=== PATIENT | female | born 1990 | race Caucasian/White ===

== ENCOUNTER 2018-12-11 11:18 | Emergency (ER) | payer OTHER ==
[~2018-12-11] VITALS: Ht 160 cm; Wt 75.1 kg
[2018-12-11] MEDS ORDERED: ESCI20TA (11:24)
[2018-12-11 11:49] LABS: BASO # 0.1 10^3/uL (0.0-0.2); BASO % 0.5 % (0.0-1.0); EOS # 0.2 10^3/uL (0.0-0.5); EOS % 1.6 % (0.0-3.0); HEMATOCRIT 41.3 % (36.0-47.0); HEMOGLOBIN 13.8 g/dl (12.0-15.5); LYMPH # 2.3 10^3/uL (1.5-5.0); LYMPH % 24.7 % (24.0-44.0); MEAN CORPUSCULAR HEMOGLOBIN 30.8 pg (27.0-33.0); MEAN CORPUSCULAR HGB CONC 33.4 g/dl (32.0-36.5); MEAN CORPUSCULAR VOLUME 92.2 fl (80.0-96.0); MONO # 0.8 10^3/uL (0.0-0.8); MONO % 8.7 % (0.0-5.0); NEUTROPHILS # 5.8 10^3/uL (1.5-8.5); NEUTROPHILS % 64.2 % (36.0-66.0); PLATELET COUNT, AUTOMATED 398 10^3/uL (150-450); RED BLOOD COUNT 4.48 10^6/uL (4.00-5.40); WHITE BLOOD COUNT 9.1 10^3/uL (4.0-10.0)
[2018-12-11 12:10] LABS: HCG, SERUM QUALITATIVE POSITIVE (NEGATIVE)
[2018-12-11 14:00] LABS: HCG, SERUM QUANTITATIVE 42 MIU/ML
[2018-12-11 14:31] VITALS: BP 128/83
--- NOTE | 2018-12-12 07:22 | REP ---
FIRST TRIMESTER ULTRASOUND: Real-time ultrasound evaluation of pelvis performed utilizing transabdominal and endovaginal technique. The uterus measures 6.9 x 3.5 x 4.4 cm. Endometrial thickness is 6 mm. There is no gestational sac seen in the endometrial canal. The right ovary measures 2.1 x 1.0 x 1.3 cm and left ovary 2.8 x 1.8 x 1.8 cm. A complex cystic structure in the left ovary measures 1.5 cm in greatest diameter which may represent a complex corpus luteum. There is no ovarian torsion, RI right ovary 0.58 and left ovary 0.47. No significant free fluid is seen in the pelvis. Differential diagnosis would include very early intrauterine gestation, missed AB, or ectopic . Suggest correlation with serial quantitative beta hCG values, and followup ultrasound as necessary. Electronically Signed by Pierre Hancock MD 12/13/2018 10:07 A
== END 2018-12-11 14:32 | disposition home or self-care (01) ==
LOC: M ED 11:18
DX: O20.8 Other hemorrhage in early pregnancy (principal); O99.341 Other mental disorders complicating pregnancy, first trimester; Z3A.01 Less than 8 weeks gestation of pregnancy; Z79.899 Other long term (current) drug therapy

== ENCOUNTER → 2018-12-13 | Outpatient (CLI) | payer OTHER ==
[~2018-12-13] MED LIST: ESCI20TA
== END ==
LOC: M LAB 11:01
PROVIDERS: ATTEND Physician Assistant
DX: O20.8 Other hemorrhage in early pregnancy (principal)

== ENCOUNTER → 2018-12-20 | Outpatient (CLI) | payer OTHER ==
[2018-12-20 13:48] LABS: ALBUMIN 3.8 GM/DL (3.2-5.2); ALT/SGPT 18 U/L (12-78); BILIRUBIN,TOTAL 0.3 MG/DL (0.2-1.0); BLOOD UREA NITROGEN 12 MG/DL (7-18); CALCIUM LEVEL 9.3 MG/DL (8.5-10.1); CARBON DIOXIDE LEVEL 29 MEQ/L (21-32); CHLORIDE LEVEL 105 MEQ/L (98-107); CREATININE FOR GFR 0.67 MG/DL (0.55-1.30); FOLLICLE STIMULATING HORMONE 5.3 mIU/mL; GLOMERULAR FILTRATION RATE > 60.0 (>60); GLUCOSE, FASTING 85 MG/DL (70-100); POTASSIUM SERUM 4.6 MEQ/L (3.5-5.1); SODIUM LEVEL 140 MEQ/L (136-145); TOTAL PROTEIN 7.2 GM/DL (6.4-8.2)
[2018-12-25 14:39] LABS: ANTI DS-DNA AB <1:10 titer (.); CARDIOLIPIN IGA ANTIBODY <9 APL U/mL (0-11); CARDIOLIPIN IGG ANTIBODY <9 GPL U/mL (0-14); CARDIOLIPIN IGM ANTIBODY <9 MPL U/mL (0-12); SSA SJOGRENS A <0.2 AI (0.0-0.9); SSB SJOGRENS B <0.2 AI (0.0-0.9)
[2018-12-26 10:14] LABS: DRVV SCREEN 42.9 SEC
== END ==
LOC: M SMT 10:23
PROVIDERS: ATTEND Obstetrics & Gynecology
DX: N96 Recurrent pregnancy loss (principal)

== ENCOUNTER → 2019-01-08 | Outpatient (CLI) | payer OTHER | LOC: M WUC 17:00 | PROVIDERS: ATTEND Obstetrics & Gynecology | DX: N96 Recurrent pregnancy loss (principal) ==

== ENCOUNTER → 2019-01-10 | Outpatient (CLI) | payer OTHER | LOC: M WUC 16:55 | PROVIDERS: ATTEND Obstetrics & Gynecology | DX: N96 Recurrent pregnancy loss (principal) ==

== ENCOUNTER → 2019-03-05 | Outpatient (CLI) | payer OTHER ==
[2019-03-05 18:16] LABS: BASO % 0.4 % (0.0-1.0); EOS # 0.2 10^3/uL (0.0-0.5); HEMATOCRIT 37.5 % (36.0-47.0); HEMOGLOBIN 12.1 g/dl (12.0-15.5); LYMPH % 20.3 % (24.0-44.0); MEAN CORPUSCULAR HEMOGLOBIN 29.9 pg (27.0-33.0); MEAN CORPUSCULAR HGB CONC 32.3 g/dl (32.0-36.5); MEAN CORPUSCULAR VOLUME 92.6 fl (80.0-96.0); MONO # 0.9 10^3/uL (0.0-0.8); MONO % 8.6 % (0.0-5.0); NEUTROPHILS # 6.7 10^3/uL (1.5-8.5); NEUTROPHILS % 68.2 % (36.0-66.0); PLATELET COUNT, AUTOMATED 408 10^3/uL (150-450); RED BLOOD COUNT 4.05 10^6/uL (4.00-5.40); WHITE BLOOD COUNT 9.9 10^3/uL (4.0-10.0)
[2019-03-05 20:46] LABS: CHLAMYDIA DNA AMPLIFICATION NEGATIVE (NEGATIVE); GC DNA AMPLIFICATION NEGATIVE (NEGATIVE)
[2019-03-07 10:34] LABS: HEPATITIS B SURFACE ANTIGEN NEGATIVE (NEGATIVE); HEPATITIS C VIRUS ABY INDEX 0.1 INDEX (<0.8); HIV 1&2 SCREEN CENTAUR NEGATIVE (NEGATIVE); RUBELLA IgG QUALITATIVE IMMUNE (IMMUNE)
== END ==
LOC: M WUC 15:08
PROVIDERS: ATTEND Obstetrics & Gynecology
DX: Z34.80 Encounter for supervision of other normal pregnancy, unspecified trimester (principal); Z36.89 Encounter for other specified antenatal screening

== ENCOUNTER → 2019-04-18 | Outpatient (CLI) | payer OTHER | LOC: M PLALAB 11:16 | PROVIDERS: ATTEND Advanced Practice Midwife | DX: Z36.89 Encounter for other specified antenatal screening (principal) ==

== ENCOUNTER → 2019-05-07 | Outpatient (CLI) | payer OTHER ==
--- NOTE | 2019-05-08 04:19 | REP ---
Clinical: Anatomical evaluation. Comparison: None . Findings: Examination demonstrates a single live intrauterine in cephalic presentation. motion is identified by technologist. Placenta is noted posterior and grade I without evidence for placenta previa or abruption. Amniotic fluid volume is normal. Cervix measures the 3.3 cm in length and appears closed. No evidence for nuchal cord. Gestational age by current measurements 20 weeks 4 days with KAMRYN 09/20/2019 . FHR equals 135 beats per minute. BPD 4.5 cm 19 weeks 4 days HC 18.3 cm 20 weeks 5 days AC 16.9 cm 21 weeks 6 days FL 3.4 cm 20 weeks 5 days HL 3.4 cm 21 weeks 4 days HC/AC ratio 1.08 Estimated weight 409 grams ( 70th percentile). Anatomical assessment demonstrates normal structures including cranium, choroid plexus, cavum, cerebellum/posterior fossa, facial features, lungs, diaphragm, stomach, cord insertion/three-vessel cord, kidneys/bladder, spine, and extremities. Impression: 1. Single live intrauterine demonstrating appropriate weight for age measurements. 2. Limited evaluation of the heart/ventricular outflow tracts. Remainder of the anatomical assessment is complete and normal.
== END ==
LOC: M WHC 09:57
PROVIDERS: ATTEND Obstetrics & Gynecology
DX: Z34.92 Encounter for supervision of normal pregnancy, unspecified, second trimester (principal); Z36.89 Encounter for other specified antenatal screening; Z3A.20 20 weeks gestation of pregnancy

== ENCOUNTER → 2019-06-15 | Outpatient (REF) | payer OTHER ==
[2019-06-15 13:22] LABS: HEMOGLOBIN 11.3 g/dl (12.0-15.5); MEAN CORPUSCULAR HEMOGLOBIN 29.9 pg (27.0-33.0); MEAN CORPUSCULAR HGB CONC 32.3 g/dl (32.0-36.5); MEAN CORPUSCULAR VOLUME 92.6 fl (80.0-96.0); PLATELET COUNT, AUTOMATED 397 10^3/uL (150-450); RED BLOOD COUNT 3.78 10^6/uL (4.00-5.40); WHITE BLOOD COUNT 13.8 10^3/uL (4.0-10.0)
== END ==
LOC: M PLALAB 10:14
PROVIDERS: ATTEND Advanced Practice Midwife
DX: O26.22 Pregnancy care for patient with recurrent pregnancy loss, second trimester (principal); Z36.89 Encounter for other specified antenatal screening; Z3A.22 22 weeks gestation of pregnancy

== ENCOUNTER → 2019-08-24 | Outpatient (REF) | payer OTHER | LOC: M PLALAB 10:23 | PROVIDERS: ATTEND Advanced Practice Midwife | DX: O26.23 Pregnancy care for patient with recurrent pregnancy loss, third trimester (principal) | CPT/HCPCS: 36415; 87389; G0463 ==

== ENCOUNTER → 2019-08-29 | Outpatient (REF) | payer OTHER ==
[2019-08-29 13:52] LABS: HEMATOCRIT 36.5 % (36.0-47.0); HEMOGLOBIN 11.6 g/dl (12.0-15.5); MEAN CORPUSCULAR HEMOGLOBIN 28.4 pg (27.0-33.0); MEAN CORPUSCULAR HGB CONC 31.8 g/dl (32.0-36.5); MEAN CORPUSCULAR VOLUME 89.2 fl (80.0-96.0); PLATELET COUNT, AUTOMATED 433 10^3/uL (150-450); RED BLOOD COUNT 4.09 10^6/uL (4.00-5.40); WHITE BLOOD COUNT 12.1 10^3/uL (4.0-10.0)
[2019-08-29 14:19] LABS: CREATININE,RANDOM URINE 44.1 MG/DL; TOTAL PROTEIN,RANDOM URINE 9.7 MG/DL (0.0-12.0)
[2019-08-29 14:23] LABS: ALT/SGPT 17 U/L (12-78); BILIRUBIN,TOTAL 0.2 MG/DL (0.2-1.0); CREATININE FOR GFR 0.54 MG/DL (0.55-1.30); GLOMERULAR FILTRATION RATE > 60.0 (>60); LDH LACTATE DEHYDROGENASE 158 U/L (84-246); URIC ACID 3.7 MG/DL (2.6-6.0)
== END ==
LOC: M PLALAB 12:17
PROVIDERS: ATTEND Advanced Practice Midwife
DX: O16.3 Unspecified maternal hypertension, third trimester (principal)
CPT/HCPCS: 36415; 82247; 82565; 82570; 83615; 84156; 84450; 84460; 84550; 85027; 87081; 87186; G0463

== ENCOUNTER 2019-09-22 08:03 | Inpatient (IN) | payer OTHER ==
[~2019-09-22] VITALS: Ht 160 cm; Wt 93.3 kg
[2019-09-22] VITALS (14 sets, daily range): BP systolic 121–145; BP diastolic 63–84
[2019-09-22] MEDS ORDERED: PRENTAB9 PO (09:08)
[2019-09-22] MEDS ORDERED: ASPI81CH33 PO (09:09)
[2019-09-22] MEDS ORDERED: EVEN10003 PO (09:10)
[2019-09-22] MEDS: miSOPROStol 50 MCG 1/2 TAB (S0191) SL SCH ×2 (10:57→15:05)
[2019-09-22 11:10] LABS: HEMATOCRIT 35.7 % (36.0-47.0); HEMOGLOBIN 11.5 g/dl (12.0-15.5); MEAN CORPUSCULAR HEMOGLOBIN 27.9 pg (27.0-33.0); MEAN CORPUSCULAR HGB CONC 32.2 g/dl (32.0-36.5); MEAN CORPUSCULAR VOLUME 86.7 fl (80.0-96.0); PLATELET COUNT, AUTOMATED 383 10^3/uL (150-450); RED BLOOD COUNT 4.12 10^6/uL (4.00-5.40); WHITE BLOOD COUNT 12.5 10^3/uL (4.0-10.0)
--- NOTE | 2019-09-22 11:50 | HPE ---
DATE OF ADMISSION: 09/22/2019 HISTORY: She is a 28-year-old, (G) 3, para (P) 0-0-2-0 female at 40 and 5/7 weeks gestation by 7 week ultrasound, with expected date of confinement (EDC) of who presents for labor induction. The was complicated by gestational hypertension. She denies contractions. There is no vaginal bleeding. COURSE: The patient initiated care at 11 weeks gestation on 02/28/2019 at [facility]. Her first trimester blood pressure was 102/68. Starting at 37 weeks gestation, she developed elevated blood pressures in the range of 130 to 140 over 90s. MEDICAL HISTORY: Anxiety. SURGICAL HISTORY: Dilatation and curettage. ALLERGIES: None. SOCIAL HISTORY: The patient lives in [place]. She denies cigarettes, alcohol or drug use. She is . FAMILY HISTORY: Noncontributory. PHYSICAL EXAMINATION: Blood pressure 129/79. Pulse 67. Afebrile. No apparent distress. Head and Neck Exam: Normal. Lungs: Clear. Heart: Regular rate and rhythm. Abdomen: Nontender. Gravid. heart tones Category 1. Sterile Vaginal Exam: 2 cm, 70%, -2, posterior, soft, vertex. Contractions every 3-4 minutes, mild. Extremities: Nontender. LABS: GBS positive. Blood type O positive. ASSESSMENT: 28-year-old, (G) 3, para (P) 0-0-2-0, female at 40 and 5/7 weeks gestation, complicated by gestational hypertension, who presents for labor induction. PLAN: Patient is admitted on 09/22/2019. Risks of induction discussed. Plan antibiotics for GBS prophylaxis.
[2019-09-22 14:40] LABS: ALT/SGPT 16 U/L (12-78); BILIRUBIN,TOTAL 0.3 MG/DL (0.2-1.0); CREATININE FOR GFR 0.61 MG/DL (0.55-1.30); GLOMERULAR FILTRATION RATE > 60.0 (>60); LDH LACTATE DEHYDROGENASE 309 U/L (84-246); URIC ACID 5.8 MG/DL (2.6-6.0)
[2019-09-22] MEDS ORDERED: OXYTOCIN DRIP 30 UNITS in IV 1 EA IV SCH (20:00)
[2019-09-22] MEDS ORDERED: PENICILLIN G POTASSIUM IV 5 MU in D5W MINI-BAG PLUS 100 ML IV STA (20:18)
[2019-09-23] VITALS (54 sets, daily range): BP systolic 100–173; BP diastolic 53–97
[2019-09-23] MEDS: PENICILLIN G POTASSIUM IV 2.5 MU in IV 1 EA IV SCH ×6 (00:23→20:30)
[2019-09-23] MEDS: LR 1,000 ML IV SCH ×4 (02:42→16:45)
[2019-09-23] MEDS ORDERED: FENTANYL 2MCG/ML ROPIVACAINE 0.2% IN 0.9% NACL 100ML IVBAG As Ordered ONE (13:53)
[2019-09-23] MEDS: FENTANYL/ROPIVACAINE/NACL BAG 100 ML EPIDURAL SCH ×2 (14:43→15:35)
[2019-09-23] MEDS ORDERED: EPIDURAL COMMENT XX SCH (15:45)
[2019-09-23] MEDS ORDERED: diphenhydrAMINE 50MG/ML VIAL (J1200) IV PRN (15:45)
[2019-09-23] MEDS ORDERED: NALOXONE INJ 0.4MG/1ML VIAL (J2310 PER 1MG) IV PRN (15:45)
[2019-09-23] MEDS ORDERED: REFRIGERATOR IV KEYS XX PRN (15:45)
[2019-09-23] MEDS ORDERED: EPIDURAL/PCA KEYS XX PRN (15:45)
[2019-09-23] MEDS ORDERED: LACTATED RINGER'S 1000 ML IV PRN (15:45)
[2019-09-23] MEDS ORDERED: ONDANSETRON 4MG/2ML VIAL IV PRN ×2 (15:45→22:15)
[2019-09-23] MEDS: ePHEDrine SULFATE 25 MG/5 ML(5MG/ML) SYRINGE IV PRN ×2 (15:51→16:07)
[2019-09-23] MEDS ORDERED: RHOGAM 300 MCG (1500 IU) INJ (J2790) IM SCH (22:15)
[2019-09-23] MEDS ORDERED: METHYLERGONOVINE MALEATE 0.2 MG TAB PO PRN (22:15)
[2019-09-23] MEDS ORDERED: DIBUCAINE 1% OINTMENT 30GM TOP PRN (22:15)
[2019-09-23] MEDS ORDERED: ACETAMINOPHEN TAB 650MG DOSE (2X325MG) PO PRN (22:15)
[2019-09-23] MEDS ORDERED: MEASLES,MUMPS,RUBELLA VACCINE INJ (MMR-II) (90707) SC SCH (22:15)
[2019-09-23] MEDS ORDERED: OXYTOCIN DRIP 30 UNITS in IV 1 EA IV ONE (22:15)
[2019-09-23] MEDS ORDERED: IBUPROFEN 600MG TAB PO PRN (22:15)
[2019-09-23] MEDS: IBUPROFEN 800 MG TAB PO PRN (23:05)
[2019-09-24] VITALS: BP 131/69
[2019-09-24] MEDS: DOCUSATE SODIUM 100 MG CAP PO PRN ×2 (02:49→21:00)
[2019-09-24] MEDS: ACETAMINOPHEN 500 MG TAB PO PRN ×2 (02:50→21:00)
[2019-09-24 05:29] VITALS: BP 107/61
[2019-09-24] MEDS: IBUPROFEN 800 MG TAB PO PRN ×2 (08:51→18:19)
[2019-09-24] MEDS: PRENATAL VITAMINS CHEWABLE TABLET PO SCH (08:51)
[2019-09-24] MEDS: ESCITALOPRAM OXALATE 10 MG TAB (LEXAPRO) PO SCH (13:53)
[2019-09-24 17:27] VITALS: BP 135/77
[2019-09-25 05:24] VITALS: BP 115/66
[2019-09-25] MEDS: ESCITALOPRAM OXALATE 10 MG TAB (LEXAPRO) PO SCH (08:12)
[2019-09-25] MEDS: PRENATAL VITAMINS CHEWABLE TABLET PO SCH (08:13)
[2019-09-25] MEDS: IBUPROFEN 800 MG TAB PO PRN (08:13)
[2019-09-25] MEDS ORDERED: IBUP80TA PO (08:41)
[2019-09-25] MEDS ORDERED: ACET-683 PO (08:41)
--- NOTE | 2019-09-26 10:16 | DN ---
DATE OF DELIVERY: 09/23/2019 PREDELIVERY DIAGNOSIS: 40-6/7 weeks gestation, gestational hypertension, labor induction. POSTDELIVERY DIAGNOSIS: Delivered. PROCEDURE: Spontaneous vaginal delivery. CHEMISTRY TEACHER: Elijah Rivas MD ANESTHESIA: Epidural. ESTIMATED BLOOD LOSS: 300 mL. FINDINGS: 8 pound 12 ounce male infant. score 8 and 9. DELIVERY SUMMARY: After a 2-1/2 hour second stage of labor, the patient had spontaneously delivery of a 8 pound 12 ounce male , score 8 and 9 under epidural anesthesia. There was no nuchal cord. The shoulders delivered with ease. The infant was handed to the mother and cried immediately. The cord was doubly clamped and cut. The placenta delivered spontaneously and appeared to be intact. The patient received intravenous (IV) pitocin immediately after delivery of the placenta. A second-degree perineal laceration was repaired with #2-0 chromic in usual fashion. Sponge and needle counts were correct.
== END 2019-09-25 11:30 | disposition home or self-care (01) | DRG 807 ==
LOC: M LDI 08:03 → M OBS 09-23 23:34
PROVIDERS: ADMIT Specialist; ATTEND Specialist
PROC: 3E0P7VZ Introduction of Hormone into Female Reproductive, Via Natural or Artificial Opening (ICD-10-PCS; 2019-09-22)
PROC: 10E0XZZ Delivery of Products of Conception, External Approach (ICD-10-PCS; principal; 2019-09-23)
PROC: 0KQM0ZZ Repair Perineum Muscle, Open Approach (ICD-10-PCS; 2019-09-23)
DX: O13.4 Gestational [pregnancy-induced] hypertension without significant proteinuria, complicating childbirth (principal); Z37.0 Single live birth; Z3A.40 40 weeks gestation of pregnancy; O99.284 Endocrine, nutritional and metabolic diseases complicating childbirth; O70.1 Second degree perineal laceration during delivery

== ENCOUNTER → 2020-11-10 | Outpatient (CLI) | payer OTHER ==
[~2020-11-10] MED LIST changes: +ACET-683 PO; +ASPI81CH33 PO; -ESCI20TA; +ESCI20TA16; +EVEN10003 PO; +IBUP80TA PO; +PRENTAB9 PO
== END ==
LOC: M PLALAB 10:05
PROVIDERS: ATTEND Advanced Practice Midwife
DX: O09.299 Supervision of pregnancy with other poor reproductive or obstetric history, unspecified trimester (principal)

== ENCOUNTER → 2020-11-12 | Outpatient (CLI) | payer OTHER | LOC: M PLALAB 09:11 | PROVIDERS: ATTEND Advanced Practice Midwife | DX: O09.299 Supervision of pregnancy with other poor reproductive or obstetric history, unspecified trimester (principal) ==

== ENCOUNTER → 2020-12-10 | Outpatient (CLI) | payer OTHER ==
[2020-12-10 15:28] LABS: HEMATOCRIT 37.5 % (36.0-47.0); HEMOGLOBIN 12.5 g/dl (12.0-15.5); MEAN CORPUSCULAR HEMOGLOBIN 29.9 pg (27.0-33.0); MEAN CORPUSCULAR HGB CONC 33.3 g/dl (32.0-36.5); MEAN CORPUSCULAR VOLUME 89.7 fl (80.0-96.0); PLATELET COUNT, AUTOMATED 411 10^3/uL (150-450); RED BLOOD COUNT 4.18 10^6/uL (4.00-5.40); WHITE BLOOD COUNT 11.3 10^3/uL (4.0-10.0)
[2020-12-10 16:44] LABS: HEPATITIS C VIRUS ABY INDEX < 0.0 INDEX (<0.8); HIV 1&2 SCREEN CENTAUR NEGATIVE (NEGATIVE)
[2020-12-10 17:12] LABS: GC DNA AMPLIFICATION NEGATIVE (NEGATIVE)
== END ==
LOC: M PLALAB 13:41
PROVIDERS: ATTEND Advanced Practice Midwife
DX: O26.21 Pregnancy care for patient with recurrent pregnancy loss, first trimester (principal)

== ENCOUNTER → 2020-12-22 | Outpatient (CLI) | payer OTHER | LOC: M PLALAB 11:52 | PROVIDERS: ATTEND Advanced Practice Midwife | DX: Z34.81 Encounter for supervision of other normal pregnancy, first trimester (principal) ==